=== PATIENT | female | born 1965 | race Hispanic/Latino ===

== ENCOUNTER → 2020-10-01 | Outpatient (CLI) | payer BC, OTHER ==
[~2020-10-01] MED LIST: BROMFED DM OR; FLONASE0.05 %; LEVAQUIN500 MG OR
== END ==
LOC: INF 14:38
PROVIDERS: ATTEND Internal Medicine
DX: Z23 Encounter for immunization (principal)
CPT/HCPCS: 96372

== ENCOUNTER 2020-10-25 14:30 | Outpatient (CLI) | payer BC, OTHER | END 2020-10-25 23:59 | disposition home or self-care (01) | LOC: INF 14:30 | PROVIDERS: ATTEND Internal Medicine | DX: Z23 Encounter for immunization (principal) | CPT/HCPCS: 96372 ==

== ENCOUNTER 2021-09-25 06:50 | Emergency (ER) | payer BC ==
[~2021-09-25] VITALS: Ht 170.2 cm; Wt 74.8 kg
[2021-09-25 07:05] VITALS: TEMP 97.1
[2021-09-25 09:10] VITALS: BP 124/68
== END 2021-09-25 09:10 | disposition still patient (30) ==
LOC: ED 06:50
DX: S50.312A Abrasion of left elbow, initial encounter (principal); S80.212A Abrasion, left knee, initial encounter; W18.39XA Other fall on same level, initial encounter; Y93.K1 Activity, walking an animal; Y92.89 Other specified places as the place of occurrence of the external cause
CPT/HCPCS: 90471; 90715; 96372; 99283; J1885

== ENCOUNTER 2022-09-18 12:55 | Emergency (ER) | payer BC ==
[~2022-09-18] VITALS: Ht 160 cm; Wt 77.1 kg
[2022-09-18 13:00] VITALS: BP 132/82; TEMP 99
== END 2022-09-18 14:24 | disposition home or self-care (01) ==
LOC: ED 12:55
DX: S91.051A Open bite, right ankle, initial encounter (principal); L29.8 Other pruritus; W59.11XA Bitten by nonvenomous snake, initial encounter; Y92.838 Other recreation area as the place of occurrence of the external cause
CPT/HCPCS: 90715; 99283; J0696